=== PATIENT | female | born 1995 | race Caucasian/White ===

== ENCOUNTER 2019-04-23 10:02 | Observation (INO) | payer OTHER ==
[~2019-04-23] VITALS: Ht 165.1 cm; Wt 65.8 kg
[2019-04-23] MEDS ORDERED: PROBIOTIC ACID1 EAC3 PO (10:38)
[2019-04-23 10:53] VITALS: BP 142/96; PULSE 79; TEMP 98.8
--- NOTE | 2019-04-23 10:56 | NUR ---
Patient up to room. Admission and assessment complete. Lung sounds clear, heart RRR. Denies chest pain, SOB, dizziness, N/V. C/O left forearm pain. LFA is swollen and red, red streak extending up arm. Patient has marked arm prior to arrival, per patient "it has been a couple of days". No edema, patient on room and ambulating on own. Pulses strong bilaterally. Denies needs at this time. Call light within reach.
[2019-04-23 12:10] LABS: BASO # 0.1 (0.0-0.2); BASO % 0.9 % (0.0-2.0); EOS # 0.1 (0.0-0.7); EOS % 2.1 % (0-4.0); GRAN % 56.8 % (42.2-75.2); HEMOGLOBIN 13.9 g/dl (12.5-16.0); LYMPH # 1.8 (1.2-3.4); LYMPH % 32.8 % (20.0-51.0); MEAN CELL VOLUME 96 fl (80.0-100.0); MEAN CORPUSCULAR HEMOGLOBIN 33 pg (27.0-31.0); MEAN CORPUSCULAR HGB CONC 34 g/dl (33.0-37.0); MONO # 0.4 (0.1-0.6); MONO % 6.6 % (1.7-9.3); PLATELET COUNT 240 K/mm3 (130-400); RED BLOOD COUNT 4.28 M/mm3 (4.10-5.30); REDCELL DISTRIBUTION WIDTH-CV 11.9 % (11.5-14.5)
[2019-04-23 12:19] LABS: ALBUMIN 4.3 gm/dL (3.5-5.0); BILIRUBIN,TOTAL 0.8 mg/dL (0.0-1.0); C-REACTIVE PROTEIN 0.6 mg/dL (0.0-0.9); CALCIUM 9.8 mg/dL (8.4-10.2); CREATININE, serum 0.86 (0.52-1.25); POTASSIUM 4.1 mmol/L (3.4-5.0); TOTAL PROTEIN 7.9 gm/dL (6.4-8.2)
[2019-04-23 12:30] LABS: ERYTHROCYTE SEDIMENTATION RATE 6 mm/hr (0-20)
[2019-04-23] MEDS ORDERED: YAZ 28 3 MG-0.01 TAB PO (13:48)
--- NOTE | 2019-04-23 15:48 | NUR ---
Administered rocephin per JAN. Patient refused prednisone due to previous reaction to a lower dose. Per patient, she didn't have an allergic reaction, she just "didn't feel good taking it, it made me feel crappy". Prednisone DC'd and hydrocortisone cream ordered.
--- NOTE | 2019-04-23 16:30 | NUR ---
Resumed care of pt at this time. PT resting in bed with at bedside. denies needs, will continue to monitor.
--- NOTE | 2019-04-23 16:36 | NUR ---
Patient report given to JORGE BUCHANAN. DEWAYNE will resume care for rest of shift. Patient laying in bed with at bedside. Denies current pain. Given hydrocortisone cream and an ice pack for LFA. Denies other needs at this time.
[2019-04-23 17:01] VITALS: BP 125/78; PULSE 68; TEMP 98.5
--- NOTE | 2019-04-23 17:33 | NUR ---
Pt denies needs, resting in bed, ordering supper. Family is at bedside. Hydrocortisone cream in place. Pt feeling well. Indurated area around bite and chording to red streaking travelling up arm. Will give bedside shift report to nightshift nurse who will resume care.
[2019-04-23 19:05] VITALS: BP 141/92; PULSE 75; TEMP 98.7
[2019-04-24 00:22] VITALS: BP 132/71; PULSE 79; TEMP 98
[2019-04-24 04:32] VITALS: BP 130/84; PULSE 80; TEMP 98
--- NOTE | 2019-04-24 04:55 | NUR ---
PT HAS REQUESTED YEAST INFECTION MEDICATION DUE TO PREVIUS HISTORY OF YEAST INFECTIONS WHILE TAKING ABX. PT STATED SHE HAS BEEN UNCOMFORTABLE. THIS NURSE ASKED YUDITH ALBRIGHT, JOSE RAMON STATED THAT SHE DIDNT WANT TO START A YEAST INFECTION MEDICATION SINCE PT HAS ONLY BEEN ON ABX FOR ONE DAY AND DIDNT FEEL THAT PT WAS HAVING A YEAST INFECTION YET, BUT ALSO FELT LIKE THE DAY SHIFT PROVIDER COULD ALSO ORDER PT SOMETHING IF THEY FELT IT WAS APPROPRIATE DUE TO THEM KNOWING HER BETTER SINCE THEY DID HER ADMISSION. THIS WAS PASSED ON TO MERVIN, PT STATED THAT SHE DIDNT WANT TO WAIT UNTIL 2PM IN THE AFTERNOON TO GET YEAST INFECTION MED IF POSSIBLE, INFORMED HER THAT HOPEFULLY WE COULD GET HER SOMETHING SOONER THEN THAT IN THE MORNING. THIS NURSE WILL PASS ON TO DAY SHIFT NURSE.
[2019-04-24 06:10] LABS: BASO % 0.6 % (0.0-2.0); EOS # 0.3 (0.0-0.7); EOS % 6.4 % (0-4.0); GRAN % 39.1 % (42.2-75.2); HEMATOCRIT 41.3 % (37.0-47.0); HEMOGLOBIN 13.7 g/dl (12.5-16.0); LYMPH # 2.3 (1.2-3.4); LYMPH % 45.1 % (20.0-51.0); MEAN CELL VOLUME 96 fl (80.0-100.0); MEAN CORPUSCULAR HEMOGLOBIN 32 pg (27.0-31.0); MEAN CORPUSCULAR HGB CONC 33 g/dl (33.0-37.0); MEAN PLATELET VOLUME 9.9 fl (7.4-10.4); MONO # 0.4 (0.1-0.6); MONO % 8.6 % (1.7-9.3); PLATELET COUNT 232 K/mm3 (130-400); RED BLOOD COUNT 4.31 M/mm3 (4.10-5.30); REDCELL DISTRIBUTION WIDTH-CV 11.9 % (11.5-14.5)
[2019-04-24 06:17] LABS: CALCIUM 9.3 mg/dL (8.4-10.2); CREATININE, serum 0.93 (0.52-1.25); POTASSIUM 4.1 mmol/L (3.4-5.0)
[2019-04-24 07:45] VITALS: BP 136/76; PULSE 73; TEMP 97.7
--- NOTE | 2019-04-24 08:15 | NUR ---
Assessment complete. Pt sitting up in bed, A&O x 4. Breath sounds CTAB. BS active x 4. Pt denies pain, reports slight discomfort from swelling to left forearm. Saline lock IV to right forearm without s/s of complications. Redness to left forearm and radiating to upper arm, slightly outside of marked borders. No further needs reported. Call light in reach.
[2019-04-24] MEDS ORDERED: AMOXICILLIN 8751 TAB PO (10:03)
[2019-04-24] MEDS ORDERED: HYDROCORTISONE30 G3 TP (10:03)
--- NOTE | 2019-04-24 11:22 | NUR ---
Patient was doing well, her mother was present. I visited, provided spiritual care and prayed with them before leaving.
--- NOTE | 2019-04-24 11:26 | NUR ---
IV discontinued with tip intact. Discharge instructions reviewed with pt regarding medications and follow-up appointment. Pt verbalizes understanding, will call when ready to leave.
--- NOTE | 2019-04-24 12:08 | NUR ---
Pt discharged home, ambulates out of facility accompanied by pt's mom and this nurse.
== END 2019-04-24 12:08 | disposition home or self-care (01) ==
LOC: PEDS 10:02 → MEDICAL 21:37
PROVIDERS: Physician Assistant; ADMIT Family Medicine
DX: L03.114 Cellulitis of left upper limb (principal); S50.862A Insect bite (nonvenomous) of left forearm, initial encounter; W57.XXXA Bitten or stung by nonvenomous insect and other nonvenomous arthropods, initial encounter; T50.905A Adverse effect of unspecified drugs, medicaments and biological substances, initial encounter; R03.0 Elevated blood-pressure reading, without diagnosis of hypertension; Z82.49 Family history of ischemic heart disease and other diseases of the circulatory system
CPT/HCPCS: G0378; J0696

== ENCOUNTER → 2019-04-27 | Outpatient (CLI) | payer OTHER ==
[~2019-04-27] MED LIST: AMOXICILLIN 8751 TAB PO; HYDROCORTISONE30 G3 TP; PROBIOTIC ACID1 EAC3 PO; YAZ 28 3 MG-0.01 TAB PO
== END ==
LOC: COL.LAB 16:25
DX: Z20.89 Contact with and (suspected) exposure to other communicable diseases (principal); L03.90 Cellulitis, unspecified

== ENCOUNTER → 2019-04-29 | Outpatient (CLI) | payer OTHER ==
[2019-04-29 10:31] LABS: BASO # 0.1 (0.0-0.2); BASO % 1.3 % (0.0-2.0); EOS # 0.5 (0.0-0.7); EOS % 8.7 % (0-4.0); GRAN # 1.4 (1.4-6.5); GRAN % 25.9 % (42.2-75.2); HEMATOCRIT 42.3 % (37.0-47.0); HEMOGLOBIN 14.2 g/dl (12.5-16.0); LYMPH # 3.1 (1.2-3.4); LYMPH % 56.9 % (20.0-51.0); MEAN CELL VOLUME 95 fl (80.0-100.0); MEAN CORPUSCULAR HEMOGLOBIN 32 pg (27.0-31.0); MEAN CORPUSCULAR HGB CONC 34 g/dl (33.0-37.0); MEAN PLATELET VOLUME 10.1 fl (7.4-10.4); MONO # 0.4 (0.1-0.6); PLATELET COUNT 238 K/mm3 (130-400); RED BLOOD COUNT 4.44 M/mm3 (4.10-5.30); REDCELL DISTRIBUTION WIDTH-CV 11.9 % (11.5-14.5)
== END ==
LOC: COL.LAB 09:35
PROVIDERS: Family Medicine
DX: R78.81 Bacteremia (principal)